=== PATIENT | female | born 1975 | race Hispanic/Latino ===

== ENCOUNTER 2018-03-25 10:28 | Emergency (ER) | payer OTHER ==
[~2018-03-25] VITALS: Ht 152.4 cm; Wt 104.3 kg
[2018-03-25] MEDS ORDERED: DEXAMETHASONE SOD PHOS 10 MG/1 ML VIAL IM ONE (10:30)
[2018-03-25] MEDS ORDERED: VALACYCLOVIR HCL 500 MG TAB PO ONE (10:30)
[2018-03-25] MEDS ORDERED: LOSARTAN POTASSIUM 100 MG TAB PO ONE (10:30)
== END 2018-03-25 11:28 | disposition home or self-care (01) ==
LOC: ER 10:29
DX: G51.0 Bell's palsy (principal); I10 Essential (primary) hypertension
CPT/HCPCS: 99283; J1100

== ENCOUNTER → 2018-04-15 | Outpatient (CLI) | payer OTHER ==
--- NOTE | 2018-04-15 13:25 | Diagnostic Imaging Report ---
EXAM: US ABDOMEN COMPLETE, US PELVIS COMPLETE NON OB COMPARISON: None TECHNIQUE: Transverse and longitudinal marie scale and color doppler sonographic images of the abdomen and pelvis were obtained. FINDINGS: ABDOMEN: LIVER Measures 18.2 cm in the right midclavicular line. Increased echogenicity of the liver with normal contour, no masses. SPLEEN Measures 9.4 cm in maximum diameter. Normal echogenicity, no masses. GALLBLADDER There is a 9 mm hyperechoic focus in the gallbladder without mobility or demonstrated vascular flow. No gallbladder wall thickening, distension, stone, or pericholecystic fluid. Negative reported sonographic Barlow's sign. BILE DUCTS No intra nor extra-hepatic biliary dilation. Common bile duct measures 0.4 cm PANCREAS: Visualized portions are normal. RIGHT KIDNEY: Measures 11.5 cm Echogenicity: Normal Collecting System: No hydronephrosis Stones: None Cyst/Mass: None LEFT KIDNEY: Measures 12.9 cm Echogenicity: Normal Collecting System: No hydronephrosis Stones: None Cyst/Mass: None VESSELS: Aorta: Visualized portions are within normal size limits Inferior Vena Cava: Visualized portions are normal Main Portal Vein: Measures 0.7 cm, normal size with hepatopetal flow. FREE FLUID: None PELVIS: Status post hysterectomy. The right ovary measures up to 3.9 cm. The left ovary measures up to 3.7 cm. There is a simple appearing anechoic right ovarian cyst measuring up to 1.7 cm and a simple appearing anechoic left ovarian cyst measuring up to 2.1 cm, likely physiologic cysts. Doppler flow is demonstrated bilaterally. No free fluid. IMPRESSION: A 9 mm non-mobile echogenic focus in the gallbladder wall without demonstrated vascular flow. This may represent a polyp. A follow-up ultrasound is suggested in12 months to assess for stability. Hepatomegaly and hepatic steatosis. Status post hysterectomy. Bilateral simple appearing physiologic ovarian cysts. Signed by: Dr. Miguel Angel Perez MD on 04/15/2018 1:22 PM
--- NOTE | 2018-04-22 08:28 | Diagnostic Imaging Report ---
#[id number] - [id number] #BILATERAL FIRST EVER DIGITAL SCREENING MAMMOGRAM WITH CAD: 04/15/2018 CLINICAL: Routine screening. Baseline exam. No prior exams were available for comparison. Current study contains 4 films. The tissue of both breasts is predominantly fatty. Current study was also evaluated with a Computer Aided Detection (CAD) system. There is a mole marker on the right breast. No significant masses, calcifications, or other findings are seen in either breast. IMPRESSION: NEGATIVE There is no mammographic evidence of malignancy. A 1 year screening mammogram is recommended. The patient will be notified by letter of the results. Michelet Tuttlefabi gandhi/aditya:04/21/2018 15:44:37 [place]: Aysha GONZALEZ)(M), [facility] letter sent: Normal Exam Mammogram BI-RADS: 1 Negative
== END ==
LOC: MAMMO 09:34
PROVIDERS: ATTEND Internal Medicine
DX: Z12.31 Encounter for screening mammogram for malignant neoplasm of breast (principal); K76.89 Other specified diseases of liver; N83.202 Unspecified ovarian cyst, left side
CPT/HCPCS: 76700; 76856; 77067

== ENCOUNTER → 2020-09-27 | Outpatient (CLI) | payer OTHER | LOC: MAMMO 13:37 | PROVIDERS: ATTEND Internal Medicine | DX: Z12.31 Encounter for screening mammogram for malignant neoplasm of breast (principal); M54.5 Low back pain | CPT/HCPCS: 72110; 72220; 77067 ==

== ENCOUNTER → 2020-10-13 | Outpatient (CLI) | payer OTHER | LOC: MAMMO 13:37 | PROVIDERS: ATTEND Internal Medicine | DX: R92.1 Mammographic calcification found on diagnostic imaging of breast (principal) ==

== ENCOUNTER → 2021-02-21 | Outpatient (CLI) | payer OTHER | LOC: RAD 13:45 | PROVIDERS: ATTEND Internal Medicine | DX: R07.89 Other chest pain (principal); J32.1 Chronic frontal sinusitis | CPT/HCPCS: 70220; 71046 ==